=== PATIENT | male | born 1980 | race African-American/Black ===

== ENCOUNTER 2024-06-15 10:25 | Emergency (ER) | payer SELFPAY ==
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
--- NOTE | 2024-06-15 10:27 | ECG_ITS ---
Test Date: 2024-06-15 10:35:27 Measurements Intervals Eleva Rate: 93 P: 74 AL: 156 QRS: 29 QRSD: 91 T: 66 QT: 345 QTc: 431 Interpretive Statements SINUS RHYTHM MINIMAL Q WAVES- HIGH LATERAL LEADS BASELINE ARTIFACT- I, AVR, AVL BORDERLINE ECG No previous ECG available for comparison Electronically Signed On 06-15-2024 10:54:28 THERMODYNAMICIST by Magno Osborne D.O.
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
[2024-06-15] MEDS: oxyCODONE/ACETAMINOPHEN (*CRX) 10-325 MG TABLET 1 TAB PO (12:32)
[2024-06-15] MEDS: ORPHENADRINE CITRATE 100 MG TABLET.ER PO (12:32)
[2024-06-15] MEDS: IBUPROFEN 400 MG TABLET 800 MG PO (12:33)
[2024-06-15 13:16] VITALS: BP 151/88; PULSE 99; RESP 16; O2SAT 100
== END 2024-06-15 13:20 | disposition home or self-care (01) ==
PROVIDERS: Emergency Provider Physician Assistant
DX: S29.9XXA Unspecified injury of thorax, initial encounter (principal); R94.31 Abnormal electrocardiogram [ECG] [EKG]; V49.9XXA Car occupant (driver) (passenger) injured in unspecified traffic accident, initial encounter
CPT/HCPCS: 71250; 93005; 99284; A9270